=== PATIENT | female | born 1985 | race Caucasian/White ===

== ENCOUNTER 2017-05-29 18:34 | Inpatient (IN) | payer OTHER ==
[2017-05-29] MEDS ORDERED: Penicillin G Potassium 5 MU in Sodium Chloride 0.9% 50 ML IVPB ONE (20:06)
[2017-05-29] MEDS ORDERED: Oxytocin 30 UNITS in Sodium Chloride 0.9% 500 ML IV ONE ×2 (20:20→22:38)
[2017-05-29] MEDS ORDERED: Lactated Ringer's 1,000 ML IV SCH (20:30)
[2017-05-29 20:37] LABS: BASO # 0.1 K/uL (0.0-0.2); BASO % 0.5 % (0.0-2.0); EOS % 0.2 % (0.0-4.0); HEMOGLOBIN 12.9 g/dL (12.0-16.0); LYMPH # 1.2 K/uL (1.0-4.3); LYMPH % 9.5 % (20.0-40.0); MEAN CELL VOLUME 94.3 fl (81.0-99.0); MEAN CORPUSCULAR HEMOGLOBIN 31.8 pg (27.0-31.0); MEAN CORPUSCULAR HGB CONC 33.8 g/dL (33.0-37.0); MEAN PLATELET VOLUME 9.2 fl (7.2-11.7); MONO # 0.9 K/uL (0.0-0.8); NEUT # 10.5 K/uL (1.8-7.0); NEUT % 82.8 % (50.0-75.0); NRBC % 1.6 % (0.0-0.0); PLATELET COUNT 204 K/uL (130-400); RBC 4.05 Mil/uL (3.80-5.20); RED CELL DISTRIBUTION WIDTH 13.5 % (11.5-14.5); WHITE BLOOD COUNT 12.6 K/uL (4.8-10.8)
[2017-05-29 21:37] LABS: ANISOCYTOSIS SLIGHT; BANDS 2 % (0-2); BASOPHIL 1 % (0-2); LYMPHOCYTE 9 % (20-50); MONOCYTE 7 % (0-10); NEUTROPHIL 81 % (42-75); PLATELET ESTIMATE NORMAL (NORMAL); TOTAL CELLS COUNTED 100
[2017-05-29] MEDS ORDERED: Lidocaine 1% Inj (20ml) ONE (22:36)
[2017-05-29 22:51] VITALS: BMI 30.9
[2017-05-29] MEDS ORDERED: Oxycodone/Acetaminophen 5/325 mg Tab PO PRN (23:04)
[2017-05-30] MEDS ORDERED: Oxycodone/Acetaminophen 5/325 mg Tab PO PRN (00:09)
[2017-05-30] MEDS: Lactated Ringer's 1,000 ML IV SCH (01:03)
[2017-05-30 07:45] LABS: MEAN CELL VOLUME 94.5 fl (81.0-99.0); MEAN CORPUSCULAR HEMOGLOBIN 32.1 pg (27.0-31.0); RBC 3.41 Mil/uL (3.80-5.20); RED CELL DISTRIBUTION WIDTH 13.5 % (11.5-14.5); WHITE BLOOD COUNT 11.4 K/uL (4.8-10.8)
--- NOTE | 2017-05-30 08:13 | OBADHP ---
Datetime: 05/29/2017 20:15 Admit Comment, IP Provider: 32 yo F IUP 36.3 weeks with JAYDEN 06/23/17 by LMP 09/16/16 c/o lower abdominal pain and bloody show since 1 pm. Patient denies lof, heavy vaginal bleeding, +FM and ctx e/ 4-5 lasting 30 seconds. PNC: [facility]. PObH: NVD x2 2012,2014. FT PgynH: none PMH: none FMH: Father DM PSH: appendectomy 2010. Meds: pnv NKDA SH: -etoh, tobacco, drugs. VS: wnl Pelvic:/-2 A/P: 32 yo F IUP 36.3 weeks, active labor. Admitt to unit Initiated labor protocol GBS+, Penicilin Monitor labor progression /maternal monitor. Case discussed with Dr Knowles. YBecerra PGY 1 Pelvic Type - PN: Adequate Extremities - PN: Normal Abdomen - PN: Normal Back - PN: Not Done Breast - PN: Not Done Lungs - PN: Normal Heart - PN: Normal Thyroid - PN: Normal Neurologic - PN: Normal HEENT - PN: Normal General - PN: Normal FHR - Baseline A Provider: 160 Membranes, Provider: Intact Vital Signs Provider: Reviewed IP Chief Complaint: Vaginal bleeding; Other NICHD Variability Prov Fetus A: Moderate 6-25bpm NICHD Accel Fetus A IP Provider: [id number] FHR Category Provider Fetus A: Category I NICHD Decel Fetus A IP Provider: None Dilatation, Provider: 4 Effacement, Provider: 90 Station, Provider: -2 Genitourinary Exam: Not Done DTRs - PN: Normal EGA AdmitDate IP: 36.3 IP Adm Impression: , intrauterine ; Active labor IP Admit Plan: Admit to unit; Initiate labor protocol
--- NOTE | 2017-05-30 08:19 | OBDS ---
DELIVERY PERSONNEL Delivery Doctor: Bowen Knowles MD Net Applications Developer: Lesli Michael RN Resident: [id number] MATERNAL INFORMATION Delivery Anesthesia: Local Medications in Delivery: Oxytocin 30 units in 500 Estimated Blood Loss (ml): 200 Placenta Cultured: Yes Maternal Complications: None Provider Comments: Normal spontaneous vaginal delivery. Viable female with Apgars of 9 and 9 at one and 5 minutes respectively. delivered in KASANDRA position. Placenta delivered spontaneously. Evidence of polyhydramnios at delivery. Laceration r epaired, as above. Uterus firm and appropriately hemostatic following delivery. Patient tolerated del denice and repair well. No complications. Estimated blood loss 200 mL LABOR SUMMARY EDC: 06/23/2017 00:00 No. Babies in Womb: 1 Attempted: No Labor Anesthesia: None LABOR INFORMATION Reason for Induction: Not Applicable Onset of Labor: 05/29/2017 22:00 Complete Dilatation: 05/29/2017 22:43 Oxytocin: N/A Group B Beta Strep: Positive Antibiotics # of Doses: 1 Antibiotics Time of Last Dose: 2039 Steroids Given: None Reason Steroids Not Administered: Not Applicable MEMBRANES Membranes Rupture Method: Artificial Rupture of Membranes: 05/30/2017 22:43 Length of Rupture (hrs): -23.93 Amniotic Fluid Color: Heavy Meconium Amniotic Fluid Amount: Copious Amniotic Fluid Odor: Normal STAGES OF LABOR Stage 1 hrs: 0 Stage 1 min: 43 Stage 2 hrs: 0 Stage 2 min: 4 Stage 3 hrs: 0 Stage 3 min: 3 Total Time in Labor hrs: 0 Total Time in Labor min: 50 VAGINAL DELIVERY Episiotomy: None Laceration Extension: Second Degree Laceration Type: Perineal Laceration Repair: Yes Laceration Repair Note: Second-degree midline perineal laceration. The area infiltrated with 1% lido pascale. A 2. 0 repeat without complication. Patient tolerated repair well. Initial Vag Sponge Count: 5 Final Vag Sponge Count: 5 Initial Vag Sharps Count: 2 Final Vag Sharps Count: 2 Sponge Count Correct: Yes Sharps Count Correct: Yes BABY A INFORMATION Delivery Date/Time: 05/29/2017 22:47 Method of Delivery: Vaginal Born in Route : No : N/A Forceps: N/A Vacuum Extraction: N/A Shoulder Dystocia : No SHOULDER DYSTOCIA BABY A Infant Delivery Date/Time: 05/29/2017 22:47 PRESENTATION/POSITION BABY A Presentation: Cephalic Cephalic Presentation: Vertex PLACENTA INFORMATION BABY A Placenta Delivery Time : 05/29/2017 22:50 Placenta Method of Delivery: Spontaneous Placenta Status: Delivered SCORES BABY A Heart Rate 1 min: >100 bpm Resp Effort 1 min: Good Cry Reflex Irritability 1 min: Cough or Sneeze or Pulls Away Muscle Tone 1 min: Active Motion Color 1 min: Body [place], Extremities Blue Resuscitation Effort 1 min: Tactile Stimulation SCORE 1 MIN: 9 Heart Rate 5 min: >100 bpm Resp Effort 5 min: Good Cry Reflex Irritability 5 min: Cough or Sneeze or Pulls Away Muscle Tone 5 min: Active Motion Color 5 min: Body [place], Extremities Blue Resuscitation Effort 5 min: Tactile Stimulation SCORE 5 MIN: 9 INFANT INFORMATION BABY A Gestational Age at Delivery: 36.4 Gestational Status: Outcome : Liveborn Infant Condition : Stable Sex: Female IDENTIFICATION/MEDS BABY A ID Band Number: [id number] ID Band Location: Left Leg; Left Arm WEIGHT/LENGTH BABY A Infant Birthweight (gms): 3020 Weight (lb): 6 Infant Weight (oz): 10 CORD INFORMATION BABY A No. Cord Vessels: 3 Nuchal Cord : N/A Cord Blood Taken: Yes Infant Suction: Mouth
--- NOTE | 2017-05-30 11:39 | OBPPN ---
Datetime: 05/30/2017 06:23 PP Pain Prov: Within normal limits PP Nausea Prov: Denies PP Flatus Prov: Yes PP BM Prov: No PP Breasts Prov: Not Done PP Heart Prov: Normal PP Lungs Prov: Normal PP Abdomen/Uterus Prov: Normal PP Lochia Prov: Normal PP Vulva/Perineum Prov: Not Done PP CVA Tenderness Prov: Not Done PP Extremities Prov: Normal PP C/S Incision Prov: Not Applicable PP Progress Prov: Normal PP Impression Prov: Normal progression PP Plan Prov: Continue present management PP Progress Note Prov: S: 32 yo s/p NVD. Pt. is seen and examined at bedside this morning. N o overnight events. Pt reports occasional abdominal pain, but well controlled with pain meds. Pt is a mbulating without any difficulties. Breast feeding baby. Tolerating PO diet. Lochia is similar to lig ht menses in volume. Voiding freely, no BM yet but passing gas per rectum. Denies fever/chills, diarr hea, nausea/vomiting, chest pain, dyspnea, and dizziness. VS: stable GEN: NAD Cardio: s1s2, no m/r/g Resp: clear breath sounds b/l Abdomen: BS+, NT, Uterus is firm and at the level of the umbilicus. EXT: No edema, calves nontender NEURO/PSYCHI: AAOx3, no grossly focal deficit, preserved affect and mood. A/P: 32 yo s/p NVD. Pt remains afebrile, tolerating pain with medication, doing well on P PD 1. OOB with caution. SCDs for DVT prophylaxis, pt ambulating Ibuprofen 600mg for pain. Colace 100mg PO BID for constipation Encourage . PP CBC: pending Anticipated d/c: 05/31/17 YBecerra PGY 1 Pt was seen and reviewed with resident and I agree with the above. IP PP Procedures: None Vital Signs Provider PP: Reviewed
[2017-05-31 18:51] VITALS: BP 106/65; PULSE 78; RESP 20; TEMP 97.9; O2SAT 100
--- NOTE | 2017-05-31 22:55 | OBPPN ---
Datetime: 05/31/2017 06:32 PP Pain Prov: Within normal limits PP Nausea Prov: Denies PP Flatus Prov: Yes PP BM Prov: No PP Breasts Prov: Not Done PP Heart Prov: Normal PP Lungs Prov: Normal PP Abdomen/Uterus Prov: Normal PP Lochia Prov: Normal PP Vulva/Perineum Prov: Not Done PP CVA Tenderness Prov: Not Done PP Extremities Prov: Normal PP C/S Incision Prov: Not Applicable PP Progress Prov: Normal PP Impression Prov: Normal progression PP Plan Prov: Discharge PP Progress Note Prov: S: 32 yo s/p NVD. Pt. is seen and examined at bedside this morning. N o overnight events. Pt reports occasional abdominal pain, but well controlled with pain meds. Pt is a mbulating without any difficulties. Breast feeding baby. Tolerating PO diet. Lochia is similar to lig ht menses in volume. Voiding freely, no BM yet but passing gas per rectum. Denies fever/chills, diarr hea, nausea/vomiting, chest pain, dyspnea, and dizziness. VS: stable GEN: NAD Cardio: s1s2, no m/r/g Resp: clear breath sounds b/l Abdomen: BS+, NT, Uterus is firm and at the level of the umbilicus. EXT: No edema, calves nontender NEURO/PSYCHI: AAOx3, no grossly focal deficit, preserved affect and mood. A/P: 32 yo s/p NVD. Pt remains afebrile, tolerating pain with medication, doing well on P PD 2. OOB with caution. SCDs for DVT prophylaxis, pt ambulating Ibuprofen 600mg for pain. Colace 100mg PO BID for constipation Encourage . PP CBC: 11.0/32.2 Discharge today. YBecerra PGY 1 Pt discussed with resident and I agree with the above. IP PP Procedures: None Vital Signs Provider PP: Reviewed
--- NOTE | 2017-05-31 22:55 | OBDCSUM ---
Datetime: 05/31/2017 06:34 Discharge Time: 05/31/2017 14:45
== END 2017-05-31 14:50 | disposition home or self-care (01) | DRG 373 ==
LOC: H.EROB2 18:34 → H.L&D 20:03 → H.OB/GYN 05-30 00:30
PROVIDERS: ADMIT Obstetrics & Gynecology; ATTEND Obstetrics & Gynecology
PROC: 10E0XZZ Delivery of Products of Conception, External Approach (ICD-10-PCS; principal; 2017-05-29)
PROC: 0KQM0ZZ Repair Perineum Muscle, Open Approach (ICD-10-PCS; 2017-05-29)
PROC: 4A1HXCZ Monitoring of Products of Conception, Cardiac Rate, External Approach (ICD-10-PCS; 2017-05-29)
DX: O40.3XX0 Polyhydramnios, third trimester, not applicable or unspecified (principal); K59.00 Constipation, unspecified; O70.1 Second degree perineal laceration during delivery; Z37.0 Single live birth; O99.824 Streptococcus B carrier state complicating childbirth; Z3A.36 36 weeks gestation of pregnancy; Z83.3 Family history of diabetes mellitus